=== PATIENT | male | born 1950 | race Caucasian/White ===

== ENCOUNTER → 2022-01-23 13:54 | Outpatient (CLI) | payer MEDICARE, SELFPAY ==
--- NOTE | ~2022-01-23 | XR_ITS ---
XR lumbar spine 2-3V 01/23/2022 14:19 INDICATION: Low back pain TECHNIQUE: KUB COMPARISON: 04/06/2009 FINDINGS: There is mild disc narrowing at all lumbar levels. There is facet hypertrophy at L4-5 and L 5-S1. No fracture, subluxation or dislocation. No evidence for spondylolisthesis. IMPRESSION: 1: Mild lumbar spondylosis.. Reviewed, dictated and finalized at location B.
== END ==
PROVIDERS: PCP Physician Assistant; Visit Provider Physician Assistant
DX: M47.817 Spondylosis without myelopathy or radiculopathy, lumbosacral region (principal)
CPT/HCPCS: 72100